=== PATIENT | male | born 1985 | race Caucasian/White ===

== ENCOUNTER 2021-11-02 19:01 | Emergency (ER) | payer OTHER ==
[~2021-11-02 19:01] MED LIST: IBUPROFEN800 MG PO; NORCO 5-325 TA1 EACH PO
[2021-11-02 20:55] LABS: EOSINOPHIL 3.1 % (0-5); HCT 43.9 % (42.0-52.0); HGB 14.6 g/dl (13.2-18.0); LYMPHOCYTE 29.2 % (15-48); MCH 30.9 pg (25.0-31.0); MCHC 33.3 g/dL (32.0-36.0); MONOCYTE 9.5 % (0-12); MPV 10.1 fL (6.0-9.5); NEUTROPHIL 56.9 % (41-80); NRBC 0; PLT 281 K/uL (150-400); RBC 4.72 M/uL (4.70-6.00); RDW 13.4 % (11.5-14.0); WBC 9.4 K/uL (4.0-10.5)
[2021-11-02 21:15] LABS: BUN/CREAT RATIO (CALC) 10.6 RATIO; CREATININE 0.94 mg/dL (0.67-1.17); POTASSIUM 3.7 mmol/L (3.5-5.1)
[2021-11-02] MEDS ORDERED: NAPROXEN500 MG PO (22:17)
[2021-11-02] MEDS ORDERED: PRILOSEC20 MG PO (22:17)
== END 2021-11-02 22:32 | disposition home or self-care (01) ==
LOC: FER 19:01
PROVIDERS: Nurse Practitioner Family
DX: K21.9 Gastro-esophageal reflux disease without esophagitis (principal); R07.89 Other chest pain; F17.210 Nicotine dependence, cigarettes, uncomplicated
CPT/HCPCS: 36415; 71045; 80048; 84484; 85025; 93005; J1100; J1885